=== PATIENT | female | born 1990 | race Hispanic/Latino ===

== ENCOUNTER 2017-06-23 04:58 | Inpatient (IN) ==
[2017-06-23] MEDS ORDERED: Naloxone Inj 0.01 MG in Normal Saline Flush 1 ML IVP PRN (04:59)
[2017-06-23] MEDS ORDERED: NORMAL SALINE 10 ML SYRINGE FLUSH IVP PRN ×3 (04:59→11:43)
[2017-06-23] MEDS ORDERED: Nalbuphine Inj 20 MG/ML Ampule IVP PRN ×2 (04:59→11:43)
[2017-06-23] MEDS ORDERED: CefOXitin Inj 2 GM in Sodium Chloride 0.9% 100 ML IV PRN (04:59)
[2017-06-23] MEDS ORDERED: METHYLERGONOVINE MALEATE 0.2 MG/1 ML VIAL IM PRN (04:59)
[2017-06-23] MEDS ORDERED: fentaNYL Inj 100 MCG/2 ML VIAL IV PRN (04:59)
[2017-06-23] MEDS ORDERED: BUTORPHANOL TARTRATE 2 MG/1 ML VIAL IVP PRN (04:59)
[2017-06-23] MEDS ORDERED: Famotidine Inj 20 MG in Normal Saline Flush 10 ML IVP PRN ×5 (04:59→11:43)
[2017-06-23] MEDS ORDERED: ONDANSETRON 4 MG/2 ML VIAL IVP PRN ×3 (04:59→11:43)
[2017-06-23] MEDS ORDERED: Metoclopramide Inj 10 MG/2 ML VIAL IV PRN (04:59)
[2017-06-23] MEDS ORDERED: CALCIUM CARBONATE 500 MG (TUMS) CHEWABLE TABLET PO PRN ×2 (04:59→11:43)
[2017-06-23] MEDS ORDERED: CITRIC ACID/SODIUM CITRATE 30 ML CUP PO PRN (04:59)
[2017-06-23] MEDS ORDERED: Lidocaine 1% 10 MG/ML - 20 ML VIAL SUBCUT PRN (04:59)
[2017-06-23] MEDS ORDERED: Phenylephrine Inj 50 MCG in Normal Saline Flush 0.5 ML IVP PRN (04:59)
[2017-06-23] MEDS ORDERED: MISOPROSTOL 200 MCG TABLET RECTAL PRN (04:59)
[2017-06-23] MEDS ORDERED: Carboprost Inj 250 MCG/ML AMP IM PRN (04:59)
[2017-06-23] MEDS ORDERED: LIDOCAINE W/ SODIUM BICARB 0.5 ML SYR SUBD PRN ×2 (04:59→11:36)
[2017-06-23] MEDS ORDERED: OXYTOCIN 10 UNIT/1 ML IM PRN (04:59)
[2017-06-23] MEDS ORDERED: ePHEDrine Inj 5 MG in Normal Saline Flush 1 ML IVP PRN (04:59)
[2017-06-23] MEDS ORDERED: diphenhydrAMINE 50 MG/1 ML VIAL IVP PRN (04:59)
[2017-06-23] MEDS ORDERED: LIDOCAINE HCL 2 % 10 ML JELLY URO-JECT TOPICAL PRN (04:59)
[2017-06-23] MEDS ORDERED: TERBUTALINE SULFATE 1 MG/1 ML SDV SUBCUT PRN (04:59)
[2017-06-23] MEDS ORDERED: NALOXONE 0.4 MG/1 ML VIAL IVP PRN (04:59)
[2017-06-23] MEDS ORDERED: Oxytocin 20 Units + LR 20 UNIT/1,000 ML BAG IV SCH ×2 (05:00→11:45)
[2017-06-23] MEDS ORDERED: Lactated Ringers-OB Dept 1,000 ML PRIMARY IV SCH (05:00)
[2017-06-23] MEDS: Misoprostol Tab 100 MCG TAB VAGINAL SCH ×2 (05:47→09:24)
--- NOTE | 2017-06-23 05:57 | OB.PROGRES ---
Interval History: 27 yo at 40 2/7 weeks gestation by LMP, c/w lmp. Denies any concerns this morning, no LOF, VB, decreased FM. uncomplicated with exception of possible macrosomia. PMH - RBBB PSH - none FH - mother - DM, father - of kidney failure SH - denies etoh, illicit drug, tobacco abuse Patient electing IOL Objective - Cervical Exam Cervical Exam: 1-04/27/-3, firm, posterior [place]: no contractions Heart Rate: baseline 120, mod sapphire, +accels, -decels Heart Rate Interpretation Category: Category I - Labs CBC and BMP: 06/23/17 06:16 - Vital Signs Last Taken Vital Signs: Vital Signs - Last Taken Temperature 98 F 06/23/17 05:05 Pulse Rate 110 H 06/23/17 05:05 Respiratory Rate 18 06/23/17 05:05 Blood Pressure 100/68 06/23/17 05:05 Pulse Ox 98 06/23/17 05:05 Assessment and Plan - Patient Problems (1) Term Current Visit: Yes Status: Acute Code(s): Z34.80 - Encounter for supervision of other normal , unspecified trimester - Assessment / Plan Additional Assessment/Plan Details: 27 yo at 40 3/7 weeks gestation by 12 week u/s, c/w LMP. uncomplicated although macrosomia suspected, EFW on Wednesday was 4206 grams. Mom' s 1 hour OGTT was 140, normal 3 hour OGTT. Mom has gained 45 lbs. Somali speaking only. -Admit for IOL for suspected macrosomia -Cytotec 25mcg placed pv -GBS negative -Rh positive, Rubella Immune -Close observation - we have had discussions regarding increased risk of failure to dilate, descend, bad perineal laceration or need for all secondary to CPD and macrosomia.
[2017-06-23 06:57] LABS: Hematocrit [HCT] 35.9 % (37.0-47.0); MEAN CORPUSCULAR HEMOGLOBIN 30.4 PG (27-31); MEAN CORPUSCULAR HGB CONC 33.4 g/dL (33-37); MEAN CORPUSCULAR VOLUME 90.9 FL (81-99); MEAN PLATELET VOLUME 10.4 FL (7.4-12.2); RED BLOOD COUNT 3.95 10^6/uL (4.20-5.40)
--- NOTE | 2017-06-23 09:30 | OB.PROGRES ---
Interval History: Received 1 dose of cytotec pv so far, no real contractions and no change. Patient without complaints. Objective - Cervical Exam Cervical Exam: 1-04/27/3, firm, posterior [place]: no contractions Heart Rate: baseline 120, mod variability, accels, no decels Heart Rate Interpretation Category: Category I - Labs CBC and BMP: 06/23/17 06:16 - Vital Signs Last Taken Vital Signs: Vital Signs - Last Taken Temperature 98 F 06/23/17 06:00 Pulse Rate 74 06/23/17 07:00 Respiratory Rate 18 06/23/17 06:00 Blood Pressure 109/62 06/23/17 06:40 Pulse Ox 99 06/23/17 07:00 Assessment and Plan - Patient Problems (1) Term Current Visit: Yes Status: Acute Code(s): Z34.80 - Encounter for supervision of other normal , unspecified trimester Support Text: 27 yo at 40 3/7 weeks gestation by 12 week u/s, c/w LMP. uncomplicated although macrosomia suspected, EFW on Wednesday was 4206 grams. Mom' s 1 hour OGTT was 140, normal 3 hour OGTT. Mom has gained 45 lbs. French speaking only. -2nd dose of cytotec placed -GBS negative -Rh + -Continue close observation
[2017-06-23] MEDS ORDERED: MORPHINE SULFATE/PF 10 MG/10 ML AMPULE ONE (10:16)
[2017-06-23] MEDS ORDERED: ePHEDrine Inj 50 MG/ML AMP ONE (10:18)
[2017-06-23] MEDS ORDERED: OXYTOCIN 10 UNIT/1 ML ONE (10:18)
[2017-06-23] MEDS ORDERED: MISOPROSTOL 200 MCG TABLET ONE (10:28)
[2017-06-23] MEDS ORDERED: Lactated Ringers 2,000 ML PRIMARY IV ONE (10:33)
[2017-06-23] MEDS ORDERED: Sodium Chloride 0.9% vial 0 ML ONE (10:34)
[2017-06-23] MEDS ORDERED: PHENYLEPHRINE 10,000 MCG/1 ML VIAL ONE (10:34)
[2017-06-23] MEDS ORDERED: ONDANSETRON 4 MG/2 ML VIAL ONE (11:30)
--- NOTE | 2017-06-23 11:34 | CRNA.PROCE ---
Central Neuraxis Block Placemt - - Safety Measures: Time Out Taken, Site Verified - - Type of Block: Subarachnoid Reason for Block: Surgical Moniters Used During Block: EKG, SPO2, NIBP Positioning: Sitting Skin Prep Used: Betadine Skin Infiltration - Enter Amount Used in Comment Field: 1% Xylocaine (mL): Yes Introducer User: 23 Gauge Spinal Needle Used: 25 Marilyn 80 mm (L3-4) Local Anesthetic - Enter Amount Used in Comment Field: 0.75 % Bupivacaine with Dextrose (ml): Yes (12mg) Additive Used - Enter Amount Used in Comment Field: Preservative Free Morphine ( mg): Yes (.15mg) Anesthesia Time - Other Weight: 67.857 kg Height: 5 ft 2 in Body Mass Index (BMI): 27.3
[2017-06-23] MEDS: KETOROLAC 15 MG/1 ML VIAL IVP SCH ×3 (11:35→23:44)
--- NOTE | 2017-06-23 11:35 | CRNA.PROGR ---
Anesthesia Time - - Start date: 06/23/17 End date: 06/23/17 - Procedure/Recovery Time Anesthesia : Time In: 10:19 Anesthesia : Time Out: 11:18 Anesthesia : Total Time: 59 - Total Anesthesia Time Total Anesthesia Time (minutes): 59 - Other Weight: 67.857 kg Height: 5 ft 2 in Body Mass Index (BMI): 27.3 Physical Status: P2 Anesthesia Type: Spinal Block
[2017-06-23] MEDS ORDERED: HYDROmorphone 2 MG/1 ML IVP PRN (11:36)
[2017-06-23] MEDS ORDERED: fentaNYL Inj 100 MCG/2 ML VIAL IVP PRN (11:36)
--- NOTE | 2017-06-23 11:36 | CRNA.PROGR ---
Anesthesia Recovery Phase I - Post Anesthesia Evaluation Patient's Condition on Arrival in Phase I: Stable Pain Level: 0
[2017-06-23] MEDS ORDERED: KETOROLAC 15 MG/1 ML VIAL ONE (11:38)
--- NOTE | 2017-06-23 11:38 | OB.OP.NOTE ---
Operative Report - - Surgeon: Shahram Gamboa Sandwich Maker: Alejandro Allen MD Anesthesia Type: Regional Anesthesia Provider: Eduardo Luciano CRNA Surgery Date: 06/23/17 Preoperative Diagnosis: intolerance. Postdataes Postoperative Diagnosis: TAGA male infant, Apgars 10, 10. Normal uterus, ovaries, fallopian tubes Procedure: primary LTCS Complications: none apparent Estimated Blood Loss (mL): 900 Urine Output (mL): 450 Fluids: 2L LR Indications: 27 yo admitted this morning at 40 4/7 weeks gestation for IOL, suspected macrosomia. had been uncomplicated otherwise. Her 1 hour OGTT was 140 , 3 hour totally normal. She received her first dose of cytotec at around 0530 with no change and no consistent contractions. She received the 2nd dose 25mcg pv around 0930. Approximately 0930. Then at about 1000 she had one approx 1 min decel, recovered to 150 then a 8 minute prolonged decel in the 70s. Attempted resuscitation included position changes, IVF, O2. Patient declined painful contraction but her uterus was quite firm and uterine tetany was suspected. About 5 mins into the decel terbutaline was given SC and the patient was positioned on her knees. The OR crew had been called and arrived by the time the heart tones recovered. Decision made to still go for a , but not emergently. FHTs were in the 150s as we went back to the OR and just before starting. Patient was consented both verbally and written to proceed with a . Risks and benefits discussed in [place] Islander. Description of Procedure: The patient was taken to the operating room where spinal anesthesia was found to be adequate. She was then prepared and draped in the normal sterile fashion in the dorsal supine position with a leftward tilt. A Pfannenstiel skin incision was then made with the scalpel and carried through to the underlying layer of fascia with Bovie. The fascia was incised in the midline and the incision extended laterally with the Bovie. The superior aspect of the fascial incision was then grasped with Shereen clamps, elevated and the underlying rectus muscles dissected off bluntly. Attention was then turned to the inferior aspect of this incision which in a similar fashion was grasped with Shereen clamps and the rectus muscles dissected off both bluntly and with the Bovie. The rectus muscle was then in the midline, and the peritoneum identified, tented up, and entered in blunt fashion. The peritoneal incision was then extended superiorly and inferiorly with good visualization of the bladder. The John Paul retractor was then inserted and the vesicouterine peritoneum was identified. The lower uterine segment incised in the transverse fashion with the scalpel. The uterine incision was then extended laterally blunt fashion. The 's head was delivered atraumatically. The nose and mouth were suctioned with the bulb suction and the cord clamped and cut. The infant was handed off to the awaiting nurse. Cord gases and cord blood were sent for analysis. The placenta was then removed manually; the uterus exteriorized, and cleared of all clots and debris. The uterine incision was repaired with 0 Vicryl in a running, locked fashion. A second layer of the same suture was used. A third layer on the L side of the incision ultimately obtained excellent hemostasis. The peritoneal cavity was then copiously irrigated with warm saline. The uterus was returned to the abdomen. The paracolic gutters were copiously irrigated with warm saline and a second look at the uterus incision continued to reveal excellent hemostasis. The peritoneum was closed with 3-0 Vicryl. The fascia reapproximated with 0 vicryl in a running fashion, first starting from the L side of the incision. Then from the R past midline. The subcutaneous space was irrigated copiously with warm saline and the closed first with 3-0 Vicryl and then more superficially with Insorb absorbable sutures. The skin was reapproximated with Steri-Strips and a Silverlon dressing applied. Fundal massage was completed with no clots in the vaginal vault. The patient tolerated the procedure well. Sponge, lap, and needle counts were correct x2. Mefoxin was given preoperatively less than one hour prior to incision time. The patient was taken to the recovery room in stable condition. Cord gases: pH 7.28 PCO2 40 HCO3 19 BE -8 Patient Problems - Patient Problem List (1) Term Current Visit: Yes Status: Acute Code(s): Z34.80 - Encounter for supervision of other normal , unspecified trimester Category: Medical
[2017-06-23] MEDS ORDERED: diphenhydrAMINE 50 MG/1 ML VIAL IV PRN (11:43)
[2017-06-23] MEDS ORDERED: LANOLIN HPA 40 GM TUBE TOPICAL PRN (11:43)
[2017-06-23] MEDS ORDERED: diphenhydrAMINE 25 MG CAPSULE PO PRN (11:43)
[2017-06-23] MEDS ORDERED: Naloxone Inj 0.01 MG, Sodium Chloride 0.9% vial 1 ML IVP PRN ×2 (11:43)
[2017-06-23] MEDS ORDERED: D5-LR 1,000 ML PRIMARY IV SCH (11:45)
[2017-06-23] MEDS ORDERED: TERBUTALINE SULFATE 1 MG/1 ML SDV ONE (12:30)
[2017-06-23] MEDS: oxyCODONE-ACETAMINOPHEN 5-325 TAB PO PRN (23:44)
[2017-06-24] MEDS ORDERED: Lactated Ringers 1,000 ML PRIMARY IV ONE (02:29)
[2017-06-24 05:22] LABS: Hematocrit [HCT] 29.3 % (37.0-47.0); Hemoglobin [HGB] 9.5 g/dL (12.0-16.0); MEAN CORPUSCULAR HEMOGLOBIN 30.1 PG (27-31); MEAN CORPUSCULAR HGB CONC 32.4 g/dL (33-37); MEAN CORPUSCULAR VOLUME 92.7 FL (81-99); MEAN PLATELET VOLUME 9.8 FL (7.4-12.2); RED BLOOD COUNT 3.16 10^6/uL (4.20-5.40)
[2017-06-24] MEDS: KETOROLAC 15 MG/1 ML VIAL IVP SCH ×2 (06:06→12:24)
[2017-06-24] MEDS: oxyCODONE-ACETAMINOPHEN 5-325 TAB PO PRN ×4 (07:24→18:45)
--- NOTE | 2017-06-24 08:08 | OB.PROGRES ---
Subjective Post Op Day: 1 Pain Management: PO [place] Catheter: No Diet: Clear Liquids [place] Feeding Method: / Bottle Ambulating: No Concerns / Additional Information: Patient reports she did not have pain overnight, did not want pain meds. This morning though the pain has caught up. She did get toradol and 1 percocet prior to my arrival, so improving somewhat. Baby was not very interested in eating overnight so mostly bottle fed and not fed for several hours now. Has not sat on edge of bed or gotten up yet, has only had liquids so far but would like pancakes this morning. Objective - General General Appearance: POSITIVE: No Acute Distress - Cardiovacular Cardiovascular Exam: POSITIVE: RRR Edema: No Pedal Edema Extremities: Negative Soraida's - Bilaterally - Respiratory Respiratory Exam: POSITIVE: Clear to Auscultation - Bilaterally, Breathing Non Labored - Abdomen Bowel Sounds: Present Abdominal Wound Assessment: Silverlone Dressing - Fundus/Lochia/Perineum Uterus Consistency: Firm Uterus Position: POSITIVE: Below Umbilicus Lochia Amount: Small 10-25 ml Lochia Color: Rubra/Red Assesstment / Plan (1) Term Current Visit: Yes Status: Acute (2) Status post delivery Current Visit: Yes Status: Acute Support Text: 27 yo G1 now P1, POD 1 s/p primary LTCS for intolerance -Shower today, move around more today -Pain control with percocet - recommended really staying on top of it today -Supporting breast feeding -Anticipate d/c in 1-2 days
[2017-06-24] MEDS: Senna/Docusate Tab 1 TAB TAB PO SCH (09:11)
[2017-06-24] MEDS: Prenatal Multivitamin Tab 1 TAB TAB PO SCH (09:11)
[2017-06-24] MEDS ORDERED: IBUPROFEN 800 MG TABLET PO PRN (11:40)
[2017-06-25] MEDS: oxyCODONE-ACETAMINOPHEN 5-325 TAB PO PRN ×3 (00:57→10:25)
[2017-06-25] MEDS: Senna/Docusate Tab 1 TAB TAB PO SCH ×2 (00:58→10:25)
--- NOTE | 2017-06-25 08:28 | DCSUMMARY ---
Hospitalization Summary Admit Date: 06/23/17 Discharge Date: 06/25/17 Primary Diagnosis:: s/p primary LTCS Primary Surgery and Date: primary LTCS 06/23/17 Delivery Type: Hospital Course: 27 yo G1 now P1 admitted on 06/23/17 at 40 3/7 weeks gestation for IOL for suspected macrosomia. Approx 30 mins after the 2nd dose of cytotec the fetus had a 8 min prolonged decel to the 70s that eventually responded to position change on knees and terbutaline. Decision made to proceed with primary LTCS for intolerance. notable only for some uterine atony after terbutaline requiring methergine and cytotec. Patient did very well postop. Advanced diet without issue. Ambulating. She is breast and bottle feeding. / Postop Complications: none apparent [place] Complications: none apparent Exam - Vitals Vital Signs: Vital Signs Temperature 98.9 F Temperature Source Oral Pulse Rate [Pulse Oximeter] 71 Pulse Rate [Apical] 81 Pulse Rate 69 Respiratory Rate 16 Blood Pressure [Left Arm] 106/62 Blood Pressure [Left Calf] 110/74 Blood Pressure [Right Arm] 112/65 Blood Pressure 128/75 Pulse Ox 99 Oxygen Flow Rate 1 Oxygen Delivery Method Room Air Height 5 ft 2 in Weight 149 lb 9.6 oz - General General Appearance: No Acute Distress - Head Head Exam: Normal Inspection - Eye Eye Exam: POSITIVE: Normal Appearance, EOMI, No Scleral Icterus - Respiratory Respiratory Exam: POSITIVE: Clear to Auscultation - Bilaterally, Breathing Non Labored - Cardiovascular Cardiovascular Exam: POSITIVE: RRR - GI/Abdominal GI/Abdominal Exam: POSITIVE: Normal Bowel Sounds, Non Tender Additional GI/Abdominal Exam Details: uterus firm below umbilicus, silverlon dressing in place - External Exam: POSITIVE: Deferred - Extremities Extremities Exam: POSITIVE: Normal Inspection, No Edema Present - Neurological Neurological Exam: POSITIVE: Alert, Oriented x 3 - Psychiatric Psychiatric Exam: POSITIVE: Flat Affect - Integumentary Integumentary Exam: POSITIVE: Normal Color Patient Problems - Patient Problem List (1) Term Current Visit: Yes Status: Acute Code(s): Z34.80 - Encounter for supervision of other normal , unspecified trimester Category: Medical (2) Status post delivery Current Visit: Yes Status: Acute Code(s): Z98.891 - History of uterine scar from previous surgery Support Text: 27 yo G1 now P1, POD 2 s/p primary LTCS for intolerance -Pain well controlle with percocet - Rx for 5/325 oxycodone/apap #30 and motrin 800mg #60 sent to [facility] -Continue PNV while breast feeding -Declined pp contraception -No lifting >10 lbs, pelvic rest x6 weeks explained -F/u with me on Wednesday for incision check Category: Medical
[2017-06-25] MEDS: Prenatal Multivitamin Tab 1 TAB TAB PO SCH (10:25)
[2017-06-25 10:45] VITALS: BP 114/78; RESP 18; TEMP 98.5; O2SAT 95
== END 2017-06-25 11:56 | disposition home or self-care (01) | DRG 766 ==
LOC: OBIP 05:00
PROVIDERS: ADMIT Student in an Organized Health Care Education/Training Program; ATTEND Student in an Organized Health Care Education/Training Program